=== PATIENT | female | born 2000 | race Caucasian/White ===

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

== ENCOUNTER 2022-01-05 20:20 | Inpatient (IN) ==
[2022-01-05 21:38] LABS: Bilirubin,Urine Negative (Negative); Blood,Urine Negative (Negative); Clarity,Urine Clear (Clear); Color,Urine Light-Yellow (Yellow); Glucose,Urine (UA) Normal (Normal); Ketones,Urine Negative (Negative); Leukocyte Esterase,Urine Negative (Negative); Nitrite,Urine Negative (Negative); Protein,Urine Negative (Neg-Trace); Specific Gravity,Urine 1.017 (1.010-1.025); Urobilinogen,Urine Normal (Normal)
[2022-01-05 21:49] LABS: Amphetamine Screen,Urine Negative ng/mL (Cutoff=1000); Barbiturate Screen,Urine Negative ng/mL (Cutoff=200); Benzodiazepines Screen,Urine Negative ng/mL (Cutoff=200); Cannabinoid Screen,Urine Negative ng/mL (Cutoff = 50); Cocaine Screen,Urine Negative ng/mL (Cutoff= 300); Opiate Screen,Urine Negative ng/mL (Cutoff=300); Phencyclidine Screen,Urine Negative ng/mL (Cutoff=25)
[2022-01-05 21:59] LABS: Basophils % 0.1 %; Eosinophils # 0.1 K/mcL (0.0-0.6); Eosinophils % 1.8 %; Hematocrit 36.3 % (35.3-44.9); Hemoglobin 11.1 g/dL (11.5-15.4); Immature Granulocytes % 0.4 % (0-4); Lymphocytes # 1.6 K/mcL (0.6-4.6); Lymphocytes % 22.9 %; Mean Corpuscular HGB Conc 30.6 g/dL (31.6-35.5); Mean Corpuscular Hemoglobin 23.5 pg (28.0-33.3); Mean Corpuscular Volume 76.7 fL (83.0-100.0); Mean Platelet Volume 11.6 fL (9.4-12.4); Monocytes # 0.4 K/mcL (0.0-1.3); Monocytes % 5.3 %; Neutrophils # 4.9 K/mcL (1.6-8.9); Platelet Count 259 K/mcL (140-400); Red Blood Count 4.73 M/mcL (3.82-4.97); Red Cell Distribution Width 15.2 % (11.5-14.5); Segmented Neutrophils % 69.5 %; White Blood Count 7.1 K/mcL (4.3-11.1)
[2022-01-05 22:18] LABS: Acetaminophen < 10 mcg/mL (10-20); BUN/Creatinine Ratio 11 (6-26); Blood Urea Nitrogen 9 mg/dL (6-20); Calcium 9.2 mg/dL (8.6-10.3); Carbon Dioxide 25 mEq/L (23-29); Chloride 106 mEq/L (98-107); Ethanol < 10 mg/dL (Less than 10); Glucose 107 mg/dL (70-105); Osmolality,Calculated 283 (280-300); Salicylate < 2.5 mg/dL (15.0-30.0); Sodium 137 mEq/L (136-145)
[2022-01-05 23:23] LABS: Influenza A PCR Negative (Negative); Influenza B PCR Negative (Negative); Resp. Syncytial Virus PCR Negative (Negative)
[2022-01-05 23:25] LABS: SARS-CoV-2 by PCR (In House) Positive (Negative)
[2022-01-06] MEDS ORDERED: haloperidoL 5 MG TABLET PO PRN (16:17)
[2022-01-06] MEDS ORDERED: Haloperidol Lactate 5 MG/ML VIAL IM PRN (16:17)
[2022-01-06] MEDS ORDERED: *HR* LORazepam 1 MG TABLET PO PRN (16:17)
[2022-01-06] MEDS ORDERED: *HR* LORazepam 2 MG/ML VIAL IM PRN (16:17)
[2022-01-06] MEDS ORDERED: Mag Hydrox/Al Hydrox/Simeth 30 ML UDC PO PRN (17:37)
[2022-01-06] MEDS ORDERED: MOM Conc 10 ML UD.LIQ PO PRN (17:37)
[2022-01-07] MEDS: Acetaminophen 325 MG TABLET PO PRN (22:22)
[2022-01-08] MEDS: Acetaminophen 325 MG TABLET PO PRN (06:41)
[2022-01-08 09:08] VITALS: BP 133/74; PULSE 74; TEMP 98.2; O2SAT 96
[2022-01-08] MEDS ORDERED: rOPINIRole 1 MG TABLET PO SCH (21:00)
== END 2022-01-08 12:42 | disposition home or self-care (01) | DRG 751 ==
LOC: UNDODISIN → EMEROOARM 20:20 → 1ANU 01-06 16:30
PROVIDERS: ADMIT Psychiatry & Neurology Psychiatry; ATTEND Psychiatry & Neurology Psychiatry